=== PATIENT | female | born 1950 | race Caucasian/White ===

== ENCOUNTER → 2017-01-29 | Outpatient (CLI) | payer BC ==
[~2017-01-29] MED LIST: PERC10TA17 PO; SILV-4 TOP
== END ==
LOC: M ONCR 09:17
PROVIDERS: ATTEND Radiology Radiation Oncology
DX: C50.811 Malignant neoplasm of overlapping sites of right female breast (principal)

== ENCOUNTER → 2017-04-23 | Outpatient (REF) | payer MEDICARE ==
[~2017-04-23] MED LIST changes: +METO1TAB33; -PERC10TA17 PO; +PERC10TA26 PO; +VALS1TAB48
== END ==
LOC: M LAB REF 13:02
PROVIDERS: ATTEND Nurse Practitioner Adult Health
DX: N39.0 Urinary tract infection, site not specified (principal)

== ENCOUNTER 2017-07-04 23:25 | Emergency (ER) | payer MEDICARE ==
[~2017-07-04] VITALS: Ht 162.6 cm; Wt 89.1 kg
[~2017-07-04 23:25] MED LIST changes: -METO1TAB33; -VALS1TAB48
[2017-07-04] MEDS ORDERED: VALS1TAB48 (23:42)
[2017-07-04] MEDS ORDERED: METO1TAB33 (23:42)
[2017-07-05] MEDS ORDERED: NS 500 ML IV ONE (00:15)
[2017-07-05] MEDS ORDERED: MORPHINE 4 MG/ML 1ML SYRINGE IV ONE ×2 (00:15→02:00)
[2017-07-05] MEDS ORDERED: ISOVUE-370 76% 100ML VIAL (Q9967) As Ordered ONE ×2 (00:31→01:57)
[2017-07-05 01:24] LABS: BASO % 0.2 % (0.0-1.0); EOS # 0.1 K/mm3 (0.0-0.50); EOS % 0.9 % (0.0-3.0); LARGE UNSTAINED CELL # 0.2 K/mm3 (0.0-0.4); LARGE UNSTAINED CELL % 1.7 % (0.0-4.0); LYMPH # 0.8 K/mm3 (1.5-4.5); LYMPH % 7.5 % (24.0-44.0); MEAN CORPUSCULAR HEMOGLOBIN 30.4 pg (27.0-33.0); MEAN CORPUSCULAR HGB CONC 34.2 g/dl (32.0-36.5); MONO # 0.8 K/mm3 (0.0-0.8); MONO % 6.8 % (0.0-5.0); NEUTROPHILS # 9.2 K/mm3 (1.8-7.7); NEUTROPHILS % 82.9 % (36.0-66.0); PLATELET COUNT, AUTOMATED 184 k/mm3 (150-450); RED CELL DISTRIBUTION WIDTH 12.8 % (11.5-14.5); WHITE BLOOD COUNT 11.1 K/mm3 (4.0-10.0)
[2017-07-05 01:47] LABS: ALBUMIN 3.6 GM/DL (3.2-5.2); ALKALINE PHOSPHATASE 124 U/L (45-117); ALT/SGPT 35 U/L (12-78); ANION GAP 8 MEQ/L (8-16); AST/SGOT 27 U/L (15-37); BILIRUBIN,DIRECT 0.2 MG/DL (0.0-0.2); BILIRUBIN,TOTAL 0.6 MG/DL (0.2-1.0); BLOOD UREA NITROGEN 15 MG/DL (7-18); CALCIUM LEVEL 8.7 MG/DL (8.8-10.2); CARBON DIOXIDE LEVEL 27 MEQ/L (21-32); CHLORIDE LEVEL 107 MEQ/L (98-107); CREATININE FOR GFR 0.75 MG/DL (0.55-1.02); GLOMERULAR FILTRATION RATE > 60.0 (>45); GLUCOSE, FASTING 103 MG/DL (80-110); POTASSIUM SERUM 3.8 MEQ/L (3.5-5.1); SODIUM LEVEL 142 MEQ/L (136-145); TOTAL PROTEIN 7.2 GM/DL (6.4-8.2)
--- NOTE | 2017-07-05 02:50 | REPUSA ---
CLINICAL HISTORY: Abdominal pain. TECHNIQUE: Multiple axial, sagittal and coronal CT images were obtained through the abdomen and pelvi s after administration of intravenous contrast material. COMMENTS: The liver is moderately enlarged with decreased attenuation without mass or defect. There is mild amarilis iary ductal dilatation. The spleen is normal. The gallbladder is surgically absent. The pancreas is o f normal contour and attenuation characteristics. There is no evidence of adrenal mass. Both kidneys demonstrate prompt and equal nephrograms. The kidneys are normal in size, shape and conf iguration. There is no evidence of renal or ureteral mass. No renal or ureteral calculi are identifie d. There is no hydroureter or hydronephrosis. No evidence for appendicitis. There is no bowel wall thickening. No evidence for small or large dali l obstruction. There is no evidence of abdominal ascites or lymphadenopathy. There is no evidence of intrinsic or extrinsic bladder mass. There is no pelvic ascites or lymphadeno crys. Images of the lung bases show no evidence of pleural or parenchymal mass. There are no pleural effusi ons. The bony structures are free of lytic or blastic lesions. Multilevel degenerative changes are seen in volving the thoracolumbar spine. Scattered calcifications are seen involving the aorta and major bran ches compatible with atherosclerosis. Prior hysterectomy. IMPRESSION: No evidence of acute traumatic abdominal or pelvic pathology. Hepatomegaly with fatty liver infiltration. Mildly dilated biliary tree. Hysterectomy. Thank you for your kind referral of this patient.
--- NOTE | 2017-07-05 02:50 | REPUSA ---
CLINICAL HISTORY: Back pain. TECHNIQUE: Multiple axial images were obtained through the L1-L2, L2-L3, L3-L4, L4-L5 and L5-S1 inter spaces. Images were also reconstructed in coronal and sagittal planes. COMMENTS: There is no fracture visualized. The paraspinal soft tissues are unremarkable. There are no lytic or blastic lesions. Straightening of lumbar lordosis is seen, suggesting muscular spasm. There is evidence of multilevel disk disease, demonstrated by osteophytosis ad endplate sclerosis. Evaluation of individual levels reveals the following: At L1-L2 , L2-L3 , L3-L4, L4-L5 and L5-S1, broad-based disk protrusion in conjunction with hypertrop hic facet disease results in moderate bilateral foraminal narrowing. Canal is mildly stenotic. IMPRESSION: 1. No fracture or spondylolisthesis. 2. Straightening of lumbar lordosis is seen, suggesting muscular spasm. Thank you for your kind referral of this patient.
[2017-07-05 03:28] VITALS: BP 138/69
--- NOTE | 2017-07-05 19:32 | ECGEPIP ---
Stationary ECG Study [facility] - ED Test Date: 2017-07-05 Pat Name: GARRISON DIAZ Department: Room: - Gender: F Vegetable Tier: MarionB: 1950 Requested By: VIDYA GRAF Order Number: [id number] Reading MD: Bienvenido Liu Measurements Intervals [place] Rate: 59 P: 28 [place]: 153 QRS: 38 QRSD: 95 T: 37 QT: 452 QTc: 451 Interpretive Statements SINUS BRADYCARDIA BORDERLINE PROLONGED QTC NO OLD ECG FOR COMPARISON Electronically Signed On 07-05-2017 19:32:26 EDT by Bienvenido Liu
--- NOTE | 2017-07-05 19:54 | ED PDOC ---
Post-Departure Follow-Up [facility] FAXED FORMAL REPORT OF CT ABD/P FOR FU Bienvenido Yates MD Jul 05, 2017 19:54
== END 2017-07-05 03:35 | disposition home or self-care (01) ==
LOC: M ED 23:25
DX: M62.830 Muscle spasm of back (principal)
CPT/HCPCS: 72131; 74177; 80048; 80076; 82550; 82553; 83690; 84484; 85025; 93005; 93041; 96361; 96374; 96376; 99285; Q9967

== ENCOUNTER → 2017-08-06 | Outpatient (CLI) | payer MEDICARE ==
[~2017-08-06] MED LIST changes: +METO1TAB33; +VALS1TAB48
--- NOTE | 2017-08-06 12:42 | RADONC ---
FOLLOWUP RADIATION ONCOLOGY DATE: 08/06/2017 CHART NUMBER: [id number] DIAGNOSIS: Right breast cancer STAGE: IA, [id number]. ECOG PERFORMANCE STATUS: 0. FOLLOWUP NOTE: Ms. 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 The patient presents today reporting that she is generally doing quite well with no complaints at this time related to her radiation therapy or disease. She is having no breast or bone pain. She does report some weakness in her lower extremities and fatigue with walking. REVIEW OF SYSTEMS: The patient's review of systems is positive for lower extremity complaints, but is otherwise noncontributory. Denies nausea, vomiting, fevers, chills, night sweats, diplopia, headaches, anxiety or depression, anorexia, weight loss, visual disturbances, chest pain, urinary or bowel difficulties, bone pain, or neurological problems. PHYSICAL EXAMINATION: The patient is a well-developed, well-nourished, in no acute distress. HEENT exam is normocephalic, atraumatic. Extraocular movements are intact. There is no palpable cervical, supraclavicular, infraclavicular, axillary, or inguinal lymphadenopathy present. Lungs are clear to auscultation and percussion. Heart has a regular rate and rhythm. Abdomen is benign with no hepatosplenomegaly, masses, or tenderness. Breast examination reveals no masses or discharge bilaterally. Skeletal examination reveals no tenderness to pressure or percussion of the bony skeleton. Extremities reveal no clubbing, cyanosis, or edema. Neurologic exam is grossly intact, as is the remainder of the physical examination. ASSESSMENT: The patient is clinically no evidence of disease (ANNE-MARIE) at this time and will be seen by us again in 6 months for further followup. She will also continue to be followed by her other physicians as well. cc: *Darius Lynn MD *[facility]
== END ==
LOC: M ONCR 09:13
PROVIDERS: ATTEND Radiology Radiation Oncology
DX: C50.811 Malignant neoplasm of overlapping sites of right female breast (principal)

== ENCOUNTER → 2017-12-16 | Outpatient (REF) | payer MEDICARE ==
[2017-12-17 11:22] LABS: HEPATITIS C VIRUS ABY INDEX < 0.0 INDEX (<0.8)
== END ==
LOC: M LAB REF 17:21
DX: Z11.59 Encounter for screening for other viral diseases (principal)
CPT/HCPCS: 86803

== ENCOUNTER → 2019-02-24 | Outpatient (CLI) | payer MEDICARE ==
[~2019-02-24] MED LIST changes: -VALS1TAB48; +VALS1TAB68
--- NOTE | 2019-03-02 13:07 | RADONC ---
RADIATION ONCOLOGY FOLLOWUP NOTE DATE: 02/24/2019 CHART NUMBER: [id number] DIAGNOSIS: Right breast cancer. STAGE: I A, [id number]. ECOG PERFORMANCE STATUS: 0 FOLLOWUP NOTE: Ms. 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 The patient presents today reporting that she is doing quite well with no complaints at this time related to her radiation therapy or disease. She has no breast or bone pain. REVIEW OF SYSTEMS: The patient's review of systems is noncontributory. Denies nausea, vomiting, fevers, chills, night sweats, diplopia, headaches, anxiety or depression, anorexia, weight loss, visual disturbances, chest pain, urinary or bowel difficulties, bone pain, or neurological problems. PHYSICAL EXAMINATION: The patient is a well-developed, well-nourished, 68-year-old white female in no acute distress. HEENT exam is normocephalic, atraumatic. Extraocular movements are intact. There is no palpable cervical, supraclavicular, infraclavicular, axillary, or inguinal lymphadenopathy present. Lungs are clear to auscultation and percussion. Heart has a regular rate and rhythm. Abdomen is benign with no hepatosplenomegaly, masses, or tenderness. Breast examination reveals no masses or discharge bilaterally. Skeletal examination reveals no tenderness to pressure or percussion of the bony skeleton. Extremities reveal no clubbing, cyanosis, or edema. Neurologic exam is grossly intact, as is the remainder of the physical examination. ASSESSMENT: The patient is clinically ANNE-MARIE at this time. She is being followed closely by her other physicians and is already scheduled for her next mammogram. She will continue her followup therefore with her medical oncologist in [place]. cc: Darius Sanchez MD
== END ==
LOC: M ONCR 09:08
PROVIDERS: ATTEND Radiology Radiation Oncology
DX: Z85.3 Personal history of malignant neoplasm of breast (principal); Z92.3 Personal history of irradiation

== ENCOUNTER → 2021-03-19 | Outpatient (CLI) | payer MEDICARE ==
--- NOTE | 2021-03-19 11:55 | REP ---
INDICATION: PAIN. COMPARISON: None. TECHNIQUE: Three views of the right shoulder were performed. FINDINGS: The acromioclavicular and glenohumeral relationships are within normal limits. There is no acute fracture or destructive osseous lesion. There is mild AC joint DJD. The distal aspect of the central venous catheter is seen the tip of which is in the region of the superior vena cava. IMPRESSION: Within normal limits for patient's age. <Electronically signed by Alvarez Perdue > 03/19/21 [id number]
--- NOTE | 2021-03-19 11:57 | REP ---
INDICATION: PAIN. COMPARISON: None TECHNIQUE: Two views FINDINGS: There is no evidence of an acute fracture or destructive osseous lesion. IMPRESSION: Negative exam <Electronically signed by Alvarez Perdue > 03/19/21 [id number]
== END ==
LOC: M WUC 11:02
PROVIDERS: ATTEND Physician Assistant
DX: M25.511 Pain in right shoulder (principal); M79.621 Pain in right upper arm

== ENCOUNTER → 2021-07-18 | Outpatient (REF) | payer MEDICARE | LOC: M WUC 09:49 | PROVIDERS: ATTEND Physician Assistant | DX: J03.90 Acute tonsillitis, unspecified (principal) ==

== ENCOUNTER → 2021-12-29 | Outpatient (REF) | payer MEDICARE | LOC: M LAB REF 19:00 | PROVIDERS: ATTEND Physician Assistant | DX: J02.9 Acute pharyngitis, unspecified (principal) ==

== ENCOUNTER → 2022-09-06 | Outpatient (REF) | payer MEDICARE ==
[2022-09-06 17:59] LABS: C REACTIVE PROTEIN QUANTITATIV < 0.30 MG/DL (0.00-0.30); RHEUMATOID FACTOR QUANT < 10.0 IU/ML (<15.0)
== END ==
LOC: M LAB REF 16:33
PROVIDERS: ATTEND Registered Nurse
DX: M13.0 Polyarthritis, unspecified (principal)

== ENCOUNTER → 2022-09-10 | Outpatient (CLI) | payer MEDICARE | LOC: M WUC 08:13 | PROVIDERS: ATTEND Registered Nurse | DX: M79.672 Pain in left foot (principal); M79.89 Other specified soft tissue disorders; M77.32 Calcaneal spur, left foot; M19.072 Primary osteoarthritis, left ankle and foot; Z87.81 Personal history of (healed) traumatic fracture ==

== ENCOUNTER → 2023-12-17 | Outpatient (REF) | payer MEDICARE ==
[2023-12-17 13:17] LABS: RSV AMPLIFICATION NEGATIVE (NEGATIVE)
== END ==
LOC: M LAB REF 11:26
PROVIDERS: ATTEND Nurse Practitioner Family
DX: R05.9 Cough, unspecified (principal)

== ENCOUNTER → 2025-03-14 | Outpatient (CLI) | payer MEDICARE | LOC: M RAD 11:18 | PROVIDERS: ATTEND Nurse Practitioner Family | DX: M79.661 Pain in right lower leg (principal) ==